=== PATIENT | female | born 1990 | race Caucasian/White ===

== ENCOUNTER → 2017-04-06 | Outpatient (CLI) | payer OTHER ==
[~2017-04-06] VITALS: Ht 172.7 cm; Wt 107.0 kg
[~2017-04-06] MED LIST: ASPIR 8181 M1 PO; DOXYCYCLINE HY100 MG PO; HYDROCODON-ACE1 EAC7 PO; IBUPROFEN800 MG PO; Motrin PO; PRENATAL TABLE1 EAC3 PO
[2017-04-06 17:32] VITALS: BP 166/89
== END | disposition home or self-care (01) ==
LOC: IVINF 17:23
DX: Z34.83 Encounter for supervision of other normal pregnancy, third trimester (principal); Z3A.28 28 weeks gestation of pregnancy; Z67.11 Type A blood, Rh negative
CPT/HCPCS: 96372; J2790

== ENCOUNTER 2017-06-16 17:58 | Inpatient (IN) | payer OTHER ==
[~2017-06-16] VITALS: Ht 172.7 cm; Wt 112.0 kg
[2017-06-16] VITALS (7 sets, daily range): BP systolic 118–143; BP diastolic 71–89
[2017-06-16 18:48] LABS: ALBUMIN 3.4 g/dL (3.2-4.8); CHLORIDE 105 mEq/L (99-109); POTASSIUM 3.7 mEq/L (3.7-5.4); SODIUM 136 mEq/L (136-147)
[2017-06-16 18:51] LABS: GLUCOSE 78 mg/dL (70-99); TOTAL PROTEIN 6.4 g/dL (6.4-8.3)
[2017-06-16 18:53] LABS: BASOPHIL (%) 0.2 % (0-1); EOSINOPHIL (%) 0.2 % (0-5); HEMATOCRIT 29.5 % (36.0-46.0); HEMOGLOBIN 9.1 G/DL (11.9-15.5); IMMATURE GRANULOCYTE (%) 0.4 % (0.0-0.7); LYMPHOCYTE COUNT 2.5 K/uL (1.0-2.8); MCH 21.1 PG (29.0-34.0); MCHC 30.8 G/DL (30.0-36.0); MCV 68.3 FL (83-99); MONOCYTE (%) 5.3 % (3-12); MONOCYTE COUNT 0.7 K/uL (0-0.8); NEUTROPHIL (%) 73.9 % (45-76); PLATELET COUNT 345 K/uL (156-360); RBC DIS.WIDTH-CV 16.2 % (11.8-14.6); RBC DIS.WIDTH-SD 39.6 % (39-53); RED BLOOD COUNT 4.32 M/uL (3.80-5.20); TOTAL BILIRUBIN 0.5 mg/dL (0.0-1.0); WHITE BLOOD COUNT 12.2 K/uL (4.1-10.2)
[2017-06-16 18:54] LABS: ALKALINE PHOSPHATASE 125 IU/L (3-129); CREATININE 0.8 mg/dL (0.6-1.3); GFR ESTIMATE (CALCULATED) > 59 mL/min/
[2017-06-16 18:55] LABS: UREA NITROGEN (BUN) 12 mg/dL (9-23)
[2017-06-16 18:56] LABS: AST (GOT) 32 IU/L (2-34)
[2017-06-16 18:57] LABS: ALT (GPT) 18 IU/L (3-49)
[2017-06-16 19:14] LABS: UR CREATININE CONCENTRATION 183.4 MG/DL
[2017-06-17] VITALS (24 sets, daily range): BP systolic 107–162; BP diastolic 61–96
[2017-06-17 03:20] LABS: AMPHETAMINE NEGATIVE (500 ng/mL); BARBITURATES NEGATIVE (200 ng/mL); BENZODIAZEPINES NEGATIVE (150 ng/mL); BUPRENORPHINE NEGATIVE (10 ng/mL); COCAINE NEGATIVE (150 ng/mL); METHADONE NEGATIVE (200 ng/mL); METHAMPHETAMINE NEGATIVE (500 ng/mL); OPIATES (MORPHINE) NEGATIVE (100 ng/mL); OXYCODONE NEGATIVE (100 ng/mL); PHENCYCLIDINE NEGATIVE (25 ng/mL); PROPOXYPHENE NEGATIVE (300 ng/mL); THC CANNABINOIDS NEGATIVE (50 ng/mL); TRICYCLIC ANTIDEPRESSANTS NEGATIVE (300 ng/mL)
[2017-06-18] VITALS (9 sets, daily range): BP systolic 121–138; BP diastolic 64–82
[2017-06-18] MEDS ORDERED: IBUPROFEN800 MG PO (01:29)
[2017-06-18 08:25] LABS: BASOPHIL (%) 0.2 % (0-1); EOSINOPHIL (%) 0.1 % (0-5); HEMATOCRIT 26.1 % (36.0-46.0); IMMATURE GRANULOCYTE (%) 0.6 % (0.0-0.7); LYMPHOCYTE (%) 13.1 % (15-42); LYMPHOCYTE COUNT 1.9 K/uL (1.0-2.8); MCH 21.3 PG (29.0-34.0); MCHC 30.7 G/DL (30.0-36.0); MCV 69.6 FL (83-99); MONOCYTE (%) 5.5 % (3-12); MONOCYTE COUNT 0.8 K/uL (0-0.8); NEUTROPHIL (%) 80.5 % (45-76); NEUTROPHIL COUNT 11.6 K/uL (1.8-6.4); PLATELET COUNT 294 K/uL (156-360); RBC DIS.WIDTH-CV 16.5 % (11.8-14.6); RBC DIS.WIDTH-SD 41.1 % (39-53); RED BLOOD COUNT 3.75 M/uL (3.80-5.20); WHITE BLOOD COUNT 14.3 K/uL (4.1-10.2)
[2017-06-19] MEDS ORDERED: FERROUS SULFAT325 MG PO (10:06)
== END 2017-06-19 15:35 | disposition home or self-care (01) | DRG 775 ==
LOC: LDRP-OP 17:58 → 2WEST 17:59 → LDRP-OP 07-27 10:42
PROVIDERS: Nurse Practitioner; Obstetrics & Gynecology
DX: O13.4 Gestational [pregnancy-induced] hypertension without significant proteinuria, complicating childbirth (principal); O76 Abnormality in fetal heart rate and rhythm complicating labor and delivery; O99.02 Anemia complicating childbirth; D62 Acute posthemorrhagic anemia; O99.214 Obesity complicating childbirth; E66.9 Obesity, unspecified; Z68.34 Body mass index [BMI] 34.0-34.9, adult; O26.893 Other specified pregnancy related conditions, third trimester; Z67.11 Type A blood, Rh negative; Z37.0 Single live birth; Z3A.38 38 weeks gestation of pregnancy
CPT/HCPCS: 80053; 82570; 83030; 84156; 85025; 86850; 86900; 86901; G0378; J2790; J7120